=== PATIENT | male | born 1965 | race Caucasian/White ===

== ENCOUNTER → 2016-12-04 | Outpatient (CLI) | payer OTHER ==
[~2016-12-04] MED LIST: ADVAIR 500/501 E1 INH; ANAPROX DS550 MG PO; ASPIR-LOW81 MG PO; ASPIRIN325 MG PO; BENADRYL25 MG PO; BENTYL20 MG PO; FLEXERIL10 MG PO; HYDROCODONE BIT1 T11 PO; ISOSORBIDE30 MG PO; LIPITOR10 MG PO; LISINOPRIL5 MG PO; MIRALAX POWDER17 G1 PO; MOTRIN400 MG PO; MOTRIN800 MG PO; NAPROXEN220 MG PO; NITROGLYCERIN0.4 MG PO; PEPCID20 MG PO; PERCOCET 325 MG1 TA2 PO; PREDNISONE50 MG PO; PREVACID30 MG PO; TRAMADOL50 MG PO; TRAZODONE100 MG PO; VENTOLIN H0.09 MG/AC INH; ZANTAC 300300 MG PO; ZANTAC150 MG PO
--- NOTE | ~2016-12-04 | PF ---
[place], [place] PULMONARY FUNCTION TEST NAME: JAMAR AVILES UNIT #: [id number] ROOM: DOCTOR: DEYVI WELLS MD,GE BIRTHDATE: [birth year] DOS: 12/04/2016 The testing was ordered by Shantal Marmolejo. HISTORY: The patient was noted as a 51-year-old male, height of 71 inches, weight of 272 pounds, BMI 37.9, presenting for complete pulmonary function test for assessment ongoing symptoms of dyspnea with exertion and productive cough. The patient noted 2-pack years tobacco use for 35 years. Tobacco cessation was noted 6 years ago. SPIROMETRY: The FVC was recorded 2.94 liters, 57% predicted value, moderate to severely decreased with 31% partial improvement occurred post-bronchodilator test. The FEV1 was noted as 1.39 liters, 35% predicted value, severely decreased with 48% partial improvement occurred postbronchodilator test. Ratio of FEV1/FVC was recorded 47%. Flow volume loop was suggestive of obstructive and restrictive airway pattern. The patient unable to perform the plethysmography testing. Lung diffusion was recorded 61%, moderately decreased without correction of carbon monoxide or hemoglobin values. FINAL IMPRESSION: The test was suggestive of combination of chronic obstructive pulmonary disease as well as bronchial asthma. Clinical correlation would be advised. GE ACRNES MD CM:PFREPORT:PULMONARY FUNCTION TEST [id number] GE WELLS MD
== END | disposition home or self-care (01) ==
LOC: CP 09:03
DX: R06.09 Other forms of dyspnea (principal); K59.04 Chronic idiopathic constipation; Z87.891 Personal history of nicotine dependence

== ENCOUNTER → 2016-12-07 | Outpatient (CLI) | payer OTHER | END | disposition home or self-care (01) | LOC: CT 11-21 14:00 | DX: K59.04 Chronic idiopathic constipation (principal); R06.09 Other forms of dyspnea; R10.32 Left lower quadrant pain; R11.0 Nausea; M47.896 Other spondylosis, lumbar region ==

== ENCOUNTER → 2023-07-16 | Outpatient (CLI) | payer OTHER | END | disposition home or self-care (01) | LOC: CT 00:20 | PROVIDERS: ATTEND Internal Medicine Critical Care Medicine | DX: Z12.2 Encounter for screening for malignant neoplasm of respiratory organs (principal); J43.2 Centrilobular emphysema; J45.50 Severe persistent asthma, uncomplicated; R07.89 Other chest pain; R91.8 Other nonspecific abnormal finding of lung field; Z68.34 Body mass index [BMI] 34.0-34.9, adult; Z87.891 Personal history of nicotine dependence ==

== ENCOUNTER 2024-05-17 14:45 | Emergency (ER) | payer OTHER ==
[2024-05-17] MEDS ORDERED: Ondansetron Hydrochloride 4 MG/2 ML VIAL IV ONE (14:50)
[2024-05-17] MEDS ORDERED: MORPHINE Sulfate 2 MG/ML SYR IV ONE (14:50)
[2024-05-17 15:05] LABS: BASO # 0.1 10*3/uL (0.0-0.1); BASO % 0.9 % (0.0-1.0); EOS # 0.2 10*3/uL (0.0-0.4); EOS % 2.3 % (1.0-4.0); HEMATOCRIT 42.2 % (42.0-52.0); MEAN CELL VOLUME 85.8 fl (80.0-94.0); MEAN CORPUSCULAR HGB 27.2 pg (27.0-31.0); MEAN CORPUSCULAR HGB CONC 31.8 g/dl (33.0-37.0); MEAN PLATELET VOLUME 9.3 fl (9.6-12.3); MONO # 0.5 10*3/uL (0.1-1.0); MONO % 4.8 % (3.0-9.0); NEUT # 6.9 10*3/uL (2.3-7.9); PLATELET COUNT AUTOMATED 227 10*3/uL (130-400); RED BLOOD COUNT 4.92 10*6/uL (4.50-5.90); RED CELL DISTRI WIDTH 13.5 % (0-14.5); WHITE BLOOD COUNT 10.1 10*3/uL (4.8-10.8)
[2024-05-17] MEDS ORDERED: MAGNESIUM SULFATE 50 ML IV ONE (15:20)
[2024-05-17 15:27] LABS: BUN 13 mg/dl (9-23); CHLORIDE 102 mmol/L (98-107); POTASSIUM 3.8 mmol/L (3.4-5.1)
[2024-05-17] MEDS ORDERED: BUSPIRONE15 MG PO (15:37)
[2024-05-17] MEDS ORDERED: VITAMIN B-121000 MC2 PO (15:38)
[2024-05-17] MEDS ORDERED: FISH OIL 1,0001 EAC3 PO (15:38)
[2024-05-17] MEDS ORDERED: ASPIRIN81 M1 PO (15:38)
[2024-05-17] MEDS ORDERED: VITAMIN D325 MC1 PO (15:39)
[2024-05-17] MEDS ORDERED: METFORMIN HYD1000 MG PO (15:39)
[2024-05-17] MEDS ORDERED: JARDIANCE25 MG PO (15:39)
[2024-05-17] MEDS ORDERED: VITAMIN D3125 MC1 PO (15:40)
[2024-05-17] MEDS ORDERED: RISPERDAL1 M1 PO (15:41)
[2024-05-17] MEDS ORDERED: ZESTRIL20 MG PO (15:42)
[2024-05-17] MEDS ORDERED: LIPITOR40 MG PO (15:43)
[2024-05-17] MEDS ORDERED: PRAZOSIN HCL5 MG PO (15:44)
[2024-05-17] MEDS ORDERED: MELOXICAM15 MG PO (16:31)
== END 2024-05-17 16:37 | disposition home or self-care (01) ==
LOC: ED 14:45
PROVIDERS: Emergency Medicine
DX: R07.89 Other chest pain (principal); R10.32 Left lower quadrant pain; K21.9 Gastro-esophageal reflux disease without esophagitis; J45.909 Unspecified asthma, uncomplicated; I10 Essential (primary) hypertension; Z91.041 Radiographic dye allergy status

== ENCOUNTER 2024-08-07 05:50 | Inpatient (IN) | payer MEDICAID ==
[~2024-08-07] VITALS: Ht 180.3 cm; Wt 111.6 kg
[2024-08-07] VITALS (10 sets, daily range): BP systolic 134–157; BP diastolic 59–94
[~2024-08-07 05:50] MED LIST changes: +ASPIRIN81 M1 PO; +BUSPIRONE15 MG PO; +FISH OIL 1,0001 EAC3 PO; +JARDIANCE25 MG PO; +LIPITOR40 MG PO; +MELOXICAM15 MG PO; +METFORMIN HYD1000 MG PO; +PRAZOSIN HCL5 MG PO; +RISPERDAL1 M1 PO; +VITAMIN B-121000 MC2 PO; +VITAMIN D3125 MC1 PO; +VITAMIN D325 MC1 PO; +ZESTRIL20 MG PO
[2024-08-07 06:15] LABS: BASO # 0.1 10*3/uL (0.0-0.1); BASO % 0.6 % (0.0-1.0); EOS # 0.3 10*3/uL (0.0-0.4); EOS % 2.3 % (1.0-4.0); HEMATOCRIT 39.8 % (42.0-52.0); MEAN CELL VOLUME 85.6 fl (80.0-94.0); MEAN CORPUSCULAR HGB 27.5 pg (27.0-31.0); MEAN CORPUSCULAR HGB CONC 32.2 g/dl (33.0-37.0); MEAN PLATELET VOLUME 9.1 fl (9.6-12.3); MONO # 0.7 10*3/uL (0.1-1.0); MONO % 5.8 % (3.0-9.0); NEUT # 9.6 10*3/uL (2.3-7.9); NEUT % 74.5 % (47.0-73.0); PLATELET COUNT AUTOMATED 226 10*3/uL (130-400); RED BLOOD COUNT 4.65 10*6/uL (4.50-5.90); RED CELL DISTRI WIDTH 13.9 % (0-14.5); WHITE BLOOD COUNT 12.8 10*3/uL (4.8-10.8)
[2024-08-07 06:34] LABS: ALKALINE PHOSPHATASE 48 U/L (46-116); BUN 21 mg/dl (9-23); CHLORIDE 104 mmol/L (98-107); LIPASE 25 U/L (12-53); POTASSIUM 4.1 mmol/L (3.4-5.1); TOTAL PROTEIN 6.9 gm/dL (6.0-8.0)
[2024-08-07 06:47] LABS: SGPT/ALT < 7 U/L (5-49)
[2024-08-07] MEDS ORDERED: LANTUS SOL100 UNIT/1 SC (06:47)
[2024-08-07] MEDS ORDERED: ZOLPIDEM10 MG PO (06:49)
[2024-08-07 06:51] LABS: BILIRUBIN Negative (Negative); BLOOD Negative (Negative); CLARITY Clear (Clear); COLOR Yellow (Yellow); GLUCOSE 3+ (Negative); KETONE Negative (Negative); LEUKO ESTERASE Negative (Negative); NITRITE Negative (Negative); PH 6.5 (4.5-8.0); SPECIFIC GRAVITY >= 1.030 (1.001-1.030); UROBILINOGEN 0.2 E.U./dl (0.0-1.0)
[2024-08-07] MEDS ORDERED: OMEPRAZOLE MAGN20 MG PO (06:53)
[2024-08-07] MEDS ORDERED: FENOFIBRATE145 M1 PO (06:54)
[2024-08-07 07:20] LABS: WBC 0-2 wbc/hpf (0-5)
[2024-08-07 07:21] LABS: YEAST TRACE
[2024-08-07] MEDS ORDERED: Piperacillin Sodium/Tazobact 50 ML IV ONE (07:30)
[2024-08-07] MEDS ORDERED: SODIUM CHLORIDE 0.9% 1,000 ML IV ONE (07:30)
[2024-08-07] MEDS ORDERED: BUPivacaine 0.5% 30 ML IV ONE (09:54)
[2024-08-07] MEDS ORDERED: Albuterol Sulf/Ipratropium 3 ML VIAL NEB ONE ×2 (10:05→10:33)
[2024-08-07] MEDS ORDERED: Lactated Ringer's Solution 1,000 ML IV ONE (10:17)
[2024-08-07] MEDS ORDERED: ACETAMINOPHEN 100 ML IV ONE (10:18)
[2024-08-07] MEDS ORDERED: BISACODYL 10 MG SUPP R PRN (10:40)
[2024-08-07] MEDS ORDERED: BISACODYL 5 MG TAB PO PRN (10:40)
[2024-08-07] MEDS ORDERED: Ondansetron Hydrochloride 4 MG/2 ML VIAL IV PRN (10:40)
[2024-08-07] MEDS ORDERED: DEXTROSE 10 % IN WATER 250 ML IV PRN (10:40)
[2024-08-07] MEDS ORDERED: ACETAMINOPHEN 325 MG TAB PO PRN (10:40)
[2024-08-07] MEDS ORDERED: INSULIN LISPRO 1 UNIT/0.01 ML SQ SCH (11:30)
[2024-08-07] MEDS ORDERED: HYDROmorphONE Hydrochloride 0.5 MG/0.5 ML SYRINGE IV ONE (12:50)
[2024-08-07] MEDS ORDERED: PROPOFOL 200 MG/20 ML VIAL IV ONE (13:09)
[2024-08-07] MEDS ORDERED: SUGAMMADEX SODIUM 200 MG/2 ML VIAL IV ONE ×2 (13:09→13:17)
[2024-08-07] MEDS ORDERED: fentaNYL CITRATE 100 MCG/2 ML VIAL IV ONE (13:09)
[2024-08-07] MEDS ORDERED: diphenhydrAMINE hydrochloride 50 MG/ML VIAL IV ONE (13:09)
[2024-08-07] MEDS ORDERED: SEVOFLURANE 250 ML BOT INH ONE (13:09)
[2024-08-07] MEDS ORDERED: Ondansetron Hydrochloride 4 MG/2 ML VIAL IV ONE (13:09)
[2024-08-07] MEDS ORDERED: ROCURONIUM BROMIDE 50 MG/5 ML SYRINGE IV ONE (13:09)
[2024-08-07] MEDS ORDERED: Dexamethasone Sodium Phospha 4 MG/ML VIAL IV ONE (13:09)
[2024-08-07] MEDS ORDERED: Lidocaine Hydrochloride 5 ML VIAL IV ONE (13:09)
[2024-08-07] MEDS ORDERED: Acetaminophen/Oxycodone 5 MG/325 MG TABLET PO PRN (14:00)
[2024-08-07] MEDS ORDERED: HYDROmorphONE Hydrochloride 0.5 MG/0.5 ML SYRINGE IV PRN (14:00)
[2024-08-07] MEDS ORDERED: Piperacillin Sodium/Tazobact 50 ML IV SCH (14:00)
[2024-08-07] MEDS ORDERED: OMEPRAZOLE 20 MG CAP PO SCH (18:00)
[2024-08-07] MEDS ORDERED: busPIRone Hydrochloride 15 MG TAB PO SCH (18:00)
[2024-08-07] MEDS ORDERED: ZOLPIDEM TARTRATE 10 MG TAB PO SCH (22:00)
[2024-08-07] MEDS ORDERED: Insulin Glargine, Recombinan 1 UNIT/0.01 ML SC SCH (22:00)
[2024-08-08] VITALS: BP 150/76
[2024-08-08 04:00] VITALS: BP 150/76
[2024-08-08 06:26] LABS: BASO # 0.1 10*3/uL (0.0-0.1); BASO % 0.5 % (0.0-1.0); EOS % 0.1 % (1.0-4.0); MEAN CELL VOLUME 86.6 fl (80.0-94.0); MEAN CORPUSCULAR HGB 27.4 pg (27.0-31.0); MEAN CORPUSCULAR HGB CONC 31.6 g/dl (33.0-37.0); MEAN PLATELET VOLUME 8.9 fl (9.6-12.3); MONO # 0.9 10*3/uL (0.1-1.0); NEUT # 12.8 10*3/uL (2.3-7.9); NEUT % 83.2 % (47.0-73.0); PLATELET COUNT AUTOMATED 285 10*3/uL (130-400); RED BLOOD COUNT 5.08 10*6/uL (4.50-5.90); RED CELL DISTRI WIDTH 13.9 % (0-14.5); WHITE BLOOD COUNT 15.4 10*3/uL (4.8-10.8)
[2024-08-08 07:25] LABS: VITAMIN D, 25-HYDROXY 57.1 ng/mL (30-100)
[2024-08-08 07:46] LABS: ALKALINE PHOSPHATASE 55 U/L (46-116); BUN 13 mg/dl (9-23); CHLORIDE 101 mmol/L (98-107); CHOLESTEROL 122 mg/dL (<200); FREE T4 1.57 ng/dl (0.89-1.76); LDL CHOLESTEROL 61 mg/dL (9-159); SGPT/ALT 9 U/L (5-49); TOTAL PROTEIN 7.6 gm/dL (6.0-8.0); TRIGLYCERIDES 166 mg/dl (<150)
[2024-08-08 07:53] LABS: POTASSIUM 5.1 mmol/L (3.4-5.1)
[2024-08-08 08:00] VITALS: BP 99/54
[2024-08-08] MEDS ORDERED: LISINOPRIL 20 MG TAB PO SCH (10:00)
[2024-08-08] MEDS ORDERED: risperiDONE 1 MG TAB PO SCH (10:00)
[2024-08-08] MEDS ORDERED: ATORVASTATIN CALCIUM 40 MG TABLET PO SCH (10:00)
[2024-08-08] MEDS ORDERED: ASPIRIN ENTERIC COATED 81 MG TAB PO SCH (10:00)
[2024-08-08] MEDS ORDERED: EMPAGLIFLOZIN 25 MG TABLET PO SCH (10:00)
[2024-08-08] MEDS ORDERED: Prazosin Hydrochloride 5 MG CAP PO SCH (10:00)
[2024-08-08] MEDS ORDERED: FENOFIBRATE 145 MG TAB PO SCH (10:00)
[2024-08-08] MEDS ORDERED: METRONIDAZOLE500 M1 PO (10:40)
[2024-08-08] MEDS ORDERED: CIPRO500 MG PO (10:40)
[2024-08-08] MEDS ORDERED: OXYCODONE-ACET1 EAC3 PO (12:57)
[2024-08-11] MEDS ORDERED: OXYCODONE-ACET1 EAC3 PO (14:33)
== END 2024-08-08 15:00 | disposition home or self-care (01) | DRG 231 ==
LOC: ED 05:50 → EDHOLD 07:37 → 5E 07:37
PROVIDERS: Internal Medicine; Registered Nurse; ADMIT Internal Medicine; ATTEND Internal Medicine
PROC: 0DTJ4ZZ Resection of Appendix, Percutaneous Endoscopic Approach (ICD-10-PCS; principal; 2024-08-07)
PROC: 0DBH4ZZ Excision of Cecum, Percutaneous Endoscopic Approach (ICD-10-PCS; 2024-08-07)
DX: K35.80 Unspecified acute appendicitis (principal); D72.829 Elevated white blood cell count, unspecified; D64.9 Anemia, unspecified; I10 Essential (primary) hypertension; E11.9 Type 2 diabetes mellitus without complications; E78.5 Hyperlipidemia, unspecified; M54.16 Radiculopathy, lumbar region; Z91.041 Radiographic dye allergy status; Z79.899 Other long term (current) drug therapy; Z80.1 Family history of malignant neoplasm of trachea, bronchus and lung

== ENCOUNTER 2024-12-29 17:33 | Emergency (ER) | payer MEDICAID ==
[~2024-12-29] VITALS: Wt 117.8 kg
[~2024-12-29 17:33] MED LIST changes: +CIPRO500 MG PO; +FENOFIBRATE145 M1 PO; +LANTUS SOL100 UNIT/1 SC; +METRONIDAZOLE500 M1 PO; +OMEPRAZOLE MAGN20 MG PO; +OXYCODONE-ACET1 EAC3 PO; +ZOLPIDEM10 MG PO
[2024-12-29] MEDS ORDERED: SODIUM CHLORIDE 0.9% 1,000 ML IV ONE (18:05)
[2024-12-29 18:16] LABS: BASO # 0.1 10*3/uL (0.0-0.1); BASO % 0.8 % (0.0-1.0); EOS # 0.3 10*3/uL (0.0-0.4); EOS % 3.0 % (1.0-4.0); MEAN CELL VOLUME 86.1 fl (80.0-94.0); MEAN CORPUSCULAR HGB 27.3 pg (27.0-31.0); MEAN PLATELET VOLUME 8.9 fl (9.6-12.3); MONO # 0.5 10*3/uL (0.1-1.0); MONO % 4.9 % (3.0-9.0); NEUT # 6.9 10*3/uL (2.3-7.9); NEUT % 71.3 % (47.0-73.0); NUCLEATED RED BLOOD CELL 0.0 % (0.0-0.0); NUCLEATED RED BLOOD CELL 0.0 10*3/uL (0.0-0.0); PLATELET COUNT AUTOMATED 211 10*3/uL (130-400); RED CELL DISTRI WIDTH 13.5 % (0-14.5)
[2024-12-29 18:32] LABS: ACT PARTIAL THROMBO TIME 27.1 SECONDS (20.0-32.1)
[2024-12-29] MEDS ORDERED: FAMOTIDINE 50 ML IV ONE (18:35)
[2024-12-29 18:37] LABS: BUN 18 mg/dl (9-23); SGPT/ALT 20 U/L (5-49)
[2024-12-29 19:10] LABS: BILIRUBIN Negative (Negative); BLOOD Negative (Negative); CLARITY Clear (Clear); COLOR Yellow (Yellow); KETONE Negative (Negative); LEUKO ESTERASE Negative (Negative); NITRITE Negative (Negative); PH 6.0 (4.5-8.0); SPECIFIC GRAVITY >= 1.030 (1.001-1.030); UROBILINOGEN 0.2 E.U./dl (0.0-1.0)
[2024-12-29 19:55] LABS: BACTERIA TRACE; WBC 0-2 wbc/hpf (0-5)
[2024-12-29] MEDS ORDERED: METRONIDAZOLE500 M1 PO (19:55)
[2024-12-29] MEDS ORDERED: CIPRO500 MG PO (19:55)
[2024-12-29] MEDS ORDERED: Ciprofloxacin Hydrochloride 500 MG TAB PO ONE (19:55)
[2024-12-29] MEDS ORDERED: metroNIDAZOLE 500 MG TAB PO ONE (19:55)
== END 2024-12-29 20:14 | disposition home or self-care (01) ==
LOC: ED 17:33
PROVIDERS: Internal Medicine
DX: K57.32 Diverticulitis of large intestine without perforation or abscess without bleeding (principal); R79.82 Elevated C-reactive protein (CRP); R11.2 Nausea with vomiting, unspecified; Z91.041 Radiographic dye allergy status; Z79.2 Long term (current) use of antibiotics; Z79.899 Other long term (current) drug therapy; Z79.4 Long term (current) use of insulin; Z79.82 Long term (current) use of aspirin